=== PATIENT | female | born 1980 | race Caucasian/White ===

== ENCOUNTER 2016-06-03 21:12 | Emergency (ER) | payer OTHER ==
[~2016-06-03] VITALS: Ht 165.1 cm; Wt 63.5 kg
[2016-06-03] MEDS ORDERED: XANAX1 MG PO (21:25)
[2016-06-03] MEDS ORDERED: IBUPROFEN 600600 M1 PO (22:06)
[2016-06-03 22:30] VITALS: BP 120/81
== END 2016-06-03 22:30 | disposition home or self-care (01) ==
LOC: ER 21:12
DX: R51 Headache (principal); F41.9 Anxiety disorder, unspecified; R11.2 Nausea with vomiting, unspecified; F43.10 Post-traumatic stress disorder, unspecified; F17.210 Nicotine dependence, cigarettes, uncomplicated; Z88.0 Allergy status to penicillin